=== PATIENT | male | born 1995 | race Asian ===

== ENCOUNTER 2017-05-06 11:02 | Inpatient (IN) | payer BC ==
[~2017-05-06] VITALS: Ht 177.8 cm; Wt 72.6 kg
--- NOTE | 2017-05-06 11:44 | NUR ---
PATIENT TO TO DT ABDOMINAL CRAMPS AND NAUSEA THIS MORNING. PER PATIENT HE ALSO HAD TWO SYNCOPAL EPISODE. PT DENIES VOMITTING. PT IS AFEBRILE AT THIS TIME,. DENIES DIRRHEA, NO DYSURIA NOR HEMATURIA NOTED. PT IN NO APPARENT DISTRESS. GOWNED PT AND PLACED ON TELE MONITOR. PENDING MD PENA/.
--- NOTE | 2017-05-06 11:45 | NUR ---
PATIENT TO ED C/O 2 EPISODES OF SYNCOPE TODAY, ABD CRAMPING, NAUSEA. AFEBRILE/
[2017-05-06] MEDS ORDERED: ONDANSETRON HCL/PF 4 MG/2 ML VIAL IVP ONE (12:00)
[2017-05-06] MEDS ORDERED: IV NS 0.9% 1,000 ML BAG IV ONE (12:00)
[2017-05-06] MEDS ORDERED: ONDANSETRON HCL/PF 4 MG/2 ML VIAL ONE ×2 (12:01→17:37)
[2017-05-06 12:12] LABS: BASOPHILS # (AUTO) 0.3 /CMM (0.0-0.2); BASOPHILS % (AUTO) 2.4 % (0.0-2.0); EOSINOPHILS % (AUTO) 0.1 % (0.0-6.0); HEMATOCRIT 39 % (39-51); HEMOGLOBIN 13.7 g/dL (13.5-17.5); LYMPHOCYTES # (AUTO) 1.2 /CMM (0.8-4.8); LYMPHOCYTES % (AUTO) 8.5 % (20.0-44.0); MEAN CORPUSCULAR HEMOGLOBIN 28 PG (26.0-33.0); MEAN CORPUSCULAR HGB CONC 35 g/dl (31.0-36.0); MEAN CORPUSCULAR VOLUME 82 fL (80-96); MONOCYTES # (AUTO) 0.9 /CMM (0.1-1.30); MONOCYTES % (AUTO) 6.2 % (2.0-12.0); NEUTROPHILS # (AUTO) 11.3 /CMM (1.8-8.9); NEUTROPHILS % (AUTO) 82.8 % (43.0-81.0); PLATELET COUNT (AUTO) 242 /CMM (150-450); RDW COEFFICIENT OF VARIATION 12.4 (11.5-15.0); RED BLOOD CELL COUNT(AUTO) 4.81 MIL/uL (4.5-6.0); WHITE BLOOD COUNT (AUTO) 13.7 K/uL (4.3-11.0)
[2017-05-06 12:21] LABS: CREATININE 1.2 mg/dL (0.6-1.3); POTASSIUM 3.9 mmol/L (3.5-5.1)
[2017-05-06 12:27] LABS: ALBUMIN 4.2 g/dL (3.4-5.0); BILIRUBIN,DIRECT 0.2 mg/dL (0.0-0.2); BILIRUBIN,TOTAL 1.9 mg/dL (0.2-1.0); TOTAL PROTEIN, SERUM 7.5 g/dL (6.4-8.2)
[2017-05-06] MEDS ORDERED: IOHEXOL-300 100 ML VIAL IV ONE (13:32)
[2017-05-06] MEDS ORDERED: CT SWABBABLE VALVE TRANS SET 1 EA INFUS.SET MC ONE (13:32)
[2017-05-06] MEDS ORDERED: IV NS 0.9% 250 ML IV ONE (13:32)
[2017-05-06 14:23] LABS: APPEARANCE,URINE Clear (CLEAR); BILIRUBIN,URINE Negative (NEGATIVE); BLOOD, URINE Negative Ery/uL (NEGATIVE); COLOR,URINE Yellow (YELLOW); KETONES,URINE 40 (NEGATIVE); LEUKOCYTE ESTERASE ,URINE Negative (NEGATIVE); NITRITE, URINE Negative (NEGATIVE); PH,URINE 6.5 (5.0-8.0); PROTEIN,URINE Negative (NEGATIVE); UGLUCOSE Negative (NEGATIVE); UROBILINOGEN,URINE 0.2 EU/dL (0.2)
[2017-05-06 14:32] LABS: BACTERIA,URINE None seen /HPF (None Seen); RBC,URINE NONE SEEN /HPF (0-2); SQUAMOUS EPITHELIAL CELL,UR Few /HPF (None Seen); WBC,URINE 0-2 /HPF (0-3)
--- NOTE | 2017-05-06 15:03 | NUR ---
[facility] VARMA ON THE PHONE WITH CHIROPRACTOR ASSISTANT GENERAL SURGEON DR LUCAS
[2017-05-06] MEDS ORDERED: IV NS 0.9% 1,000 ML IV PRN (15:41)
[2017-05-06] MEDS ORDERED: HYDROCODONE/APAP 5/325MG 1 EACH TABLET PO PRN ×2 (16:00→17:45)
[2017-05-06] MEDS ORDERED: ONDANSETRON HCL/PF 4 MG/2 ML VIAL IVP PRN ×2 (16:00→17:45)
[2017-05-06] MEDS ORDERED: MAG HYDROX/AL HYDROX/SIMETH 30 ML UDC PO PRN ×2 (16:00→17:45)
[2017-05-06] MEDS ORDERED: MAGNESIUM HYDROXIDE 30 ML UDC PO PRN ×2 (16:00→17:45)
[2017-05-06] MEDS ORDERED: Z GUARD REMEDY 2 OZ OINT TP PRN ×2 (16:00→17:45)
[2017-05-06] MEDS ORDERED: ZOLPIDEM TARTRATE 5 MG TABLET PO PRN ×2 (16:00→17:45)
[2017-05-06] MEDS ORDERED: ACETAMINOPHEN 325 MG TABLET PO PRN ×2 (16:00→17:45)
--- NOTE | 2017-05-06 16:16 | NUR ---
BED 314.1
[2017-05-06] MEDS ORDERED: ONDANSETRON HCL/PF 4 MG/2 ML VIAL IV ONE (17:30)
[2017-05-06] MEDS ORDERED: MORPHINE SULFATE INJ 10 MG/ML DISP.SYRIN IV ONE (17:30)
[2017-05-06] MEDS ORDERED: MORPHINE SULFATE INJ 4 MG/ML DISP.SYRIN ONE (17:35)
--- NOTE | 2017-05-06 17:39 | NUR ---
PT TRANSPORTED TO CT,. VSS
[2017-05-06 19:00] VITALS: BP 119/74
--- NOTE | 2017-05-06 19:10 | NUR ---
MS RN NOTES: DR. JASMIN Banegas AT BEDSIDE.
--- NOTE | 2017-05-06 19:10 | NUR ---
MS RN OPENING NOTES: RECEIVED PT AND IS AWAKE AND A/OX4. PT NOT COMPLAINING OF ANY PAIN AT THIS TIME. PT HAS IV ON L AC #20G AND IS TO START ON IV FLUIDS SOON. PT A/OX4. PT SPEAKING WITH DR. CASTELLANOS AT THIS TIME. CALL LIGHT WITHIN PT'S REACH. PT INFORMED THAT POST MIDNIGHT, NOT TO HAVE ANYTHING TO EAT OR DRINK. CALL LIGHT WITHIN PT'S REACH. BED KEPT IN LOW, LOCKED POSITION, AND SIDE RAILS X 2UP. WILL CONTINUE TO MONITOR PT.
--- NOTE | 2017-05-06 19:10 | NUR ---
MS RN NOTES: PER DR. CASTELLANOS, ORDER CBC AND BMP IN THE MORNING. ALSO, PT TO BE NPO POST MIDNIGHT. CALL DR. CASTELLANOS AT 0830 IN THE MORNING TO LET HIM KNOW HOW THE PATIENT IS LOOKING AND DOING.
[2017-05-06] MEDS: IV NS 0.9% 1,000 ML IV PRN (19:54)
[2017-05-06 20:00] VITALS: BP 114/67
[2017-05-06 21:05] VITALS: BP 114/67
--- NOTE | 2017-05-06 22:04 | NUR ---
MS RN NOTES: PER DR. JASMIN Banegas GET CONSENT FOR HIV IF PATIENT CONSENTS. CONSENT OBTAINED AND PLACED IN CHART.
--- NOTE | 2017-05-06 22:18 | NUR ---
MS RN NOTES: SPOKE WITH DR. LEON AND GOT ORDER FOR MORPHINE 2MG IV Q3HR PRN SINCE PT WILL BE NPO POST MIDNIGHT IN CASE PATIENT ASKS FOR PAIN MEDICATION.
[2017-05-06] MEDS ORDERED: MORPHINE SULFATE INJ 4 MG/ML DISP.SYRIN IV PRN (22:30)
--- NOTE | 2017-05-07 07:15 | NUR ---
MS RN CLOSING NOTES: ALL NEEDS WERE ATTENDED AND ANTICIPATED FOR. PT ASLEEP AT THIS TIME. PT HAS IV ON L AC #20G AND IS BEING INFUSED WITH NS AT 75ML/HR. PT KEPT NPO POST MIDNIGHT. CALL LIGHT WITHIN PT'S REACH. CALL LIGHT WITHIN PT'S REACH. BED KEPT IN LOW, LOCKED POSITION, AND SIDE RAILS X 2UP. ENDORSED TO AM NURSE FOR SACHIN.
[2017-05-07 07:18] LABS: BASOPHILS % (AUTO) 0.4 % (0.0-2.0); EOSINOPHILS # (AUTO) 0.1 /CMM (0.0-0.7); EOSINOPHILS % (AUTO) 0.6 % (0.0-6.0); HEMATOCRIT 33 % (39-51); HEMOGLOBIN 11.3 g/dL (13.5-17.5); LYMPHOCYTES % (AUTO) 24.3 % (20.0-44.0); MEAN CORPUSCULAR HEMOGLOBIN 29 PG (26.0-33.0); MEAN CORPUSCULAR HGB CONC 35 g/dl (31.0-36.0); MEAN CORPUSCULAR VOLUME 83 fL (80-96); MONOCYTES # (AUTO) 0.6 /CMM (0.1-1.30); MONOCYTES % (AUTO) 7.7 % (2.0-12.0); NEUTROPHILS # (AUTO) 5.5 /CMM (1.8-8.9); PLATELET COUNT (AUTO) 194 /CMM (150-450); RDW COEFFICIENT OF VARIATION 13.3 (11.5-15.0); RED BLOOD CELL COUNT(AUTO) 3.92 MIL/uL (4.5-6.0); WHITE BLOOD COUNT (AUTO) 8.3 K/uL (4.3-11.0)
--- NOTE | 2017-05-07 07:28 | NUR ---
MS/RN OPENING NOTE RECEIVED PATIENT IN BED AWAKE. THE PATIENT ALERT AND ORIENTED X4. RESPIRATION REGULAR AND UNLABORED. DENIES SOB, DENIES PAIN AT THIS TIME. IN NO APPARENT DISTRESS. LAC G 20 PATENT, NO S/S INFILTRATION NOTED. ON NPO SINCE MIDNIGHT. BED LOW AND LOCKED. SIDE RAIL UP X2. CALL LIGHT WITHIN REACH. WILL CONTINUE TO MONITOR.
[2017-05-07 08:00] VITALS: BP 89/45
[2017-05-07 08:08] LABS: ALBUMIN 3.2 g/dL (3.4-5.0); BILIRUBIN,TOTAL 1.7 mg/dL (0.2-1.0); CALCIUM, SERUM 8.4 mg/dL (8.5-10.1); CREATININE 1.1 mg/dL (0.6-1.3); POTASSIUM 4.2 mmol/L (3.5-5.1); TOTAL PROTEIN, SERUM 6.2 g/dL (6.4-8.2)
--- NOTE | 2017-05-07 08:18 | NUR ---
TEXTED FOR MRI APPROVAL.
[2017-05-07] MEDS: IV NS 0.9% 1,000 ML IV PRN ×2 (10:02→23:31)
[2017-05-07] MEDS ORDERED: IV NS 0.9% 0 ML IV ONE (10:05)
[2017-05-07] MEDS ORDERED: CT SWABBABLE VALVE TRANS SET 1 EA INFUS.SET MC ONE (10:05)
[2017-05-07] MEDS ORDERED: IOHEXOL-300 100 ML VIAL IV ONE (10:05)
--- NOTE | 2017-05-07 10:30 | NUR ---
MS/RN S/B Dr Leija Seen by Dr Leija - possible colonoscopy depending on findings of MRI.
--- NOTE | 2017-05-07 11:30 | NUR ---
MS/RN MRI abdomen and pelvis MRI abdomen and pelvis resulted as showing soft tissue mass within the pelvis, measuring 8.0X7.8X5.0cm. AIRFREIGHT OPERATIONS AGENT and Dr Merchant made aware.
[2017-05-07] MEDS ORDERED: GADOVERSETAMIDE 2.5 MMOL/5 ML VIAL IJ ONE (12:25)
[2017-05-07] MEDS ORDERED: GADOVERSETAMIDE 5 MMOL/10 ML VIAL IJ ONE (12:25)
--- NOTE | 2017-05-07 12:30 | NUR ---
MS/RN CT chest CT chest resulted as showing solitary pulmonary nodule in the right lower lung which may represent small pulmonary metastasis.
--- NOTE | 2017-05-07 12:47 | NUR ---
CT GUIDED NEEDLE BIOPSY OF PELVIC MASS TO BE DONE 05/08/17 AT 1000. RN, NURSING LEAD INVESTIGATOR, PATHOLOGY AWARE. COAGS TO BE DRAWN. CONSENTS FOR PROCEDURE AND MODERATE SEDATION TO BE OBTAINED. PATIENT TO BE NPO AFTER MIDNIGHT.
--- NOTE | 2017-05-07 14:00 | NUR ---
MS/RN S/B Loree Bhandari REGISTERED TRAVEL NURSE Seen by REGISTERED TRAVEL NURSE - aware of all results. Patient and family spoken to at length about possibility of malignancy. CT needle biopsy of pelvic mass ordered for tomorrow. Patient to be NPO from midnight, consent forms signed.
[2017-05-07 15:14] LABS: INR 0.97 (0.87-1.13)
[2017-05-07 16:00] VITALS: BP 106/46
--- NOTE | 2017-05-07 19:04 | NUR ---
MS/RN CLOSING NOTE PATIENT IN BED AWAKE. A/O X4. DENIES SOB, PAIN. IN NO APPARENT DISTRESS. RESPIRATION REGULAR AND UNLABORED. BED LOW AND LOCKED. SIDE RAIL UP X2. CALL LIGHT WITHIN REACH. WILL CONTINUE TO MONITOR.
[2017-05-07 20:00] VITALS: BP 109/62
--- NOTE | 2017-05-07 20:30 | NUR ---
MS RN NOTE: RECEIVED PATIENT FROM 3RD FLOOR, NO ACUTE DISTRESS NOTED, FAMILY AT BEDSIDE. BREATHING EVEN AND UNLABORED, NO SOB NOTED. IV TO LEFT HAND IN PLACE. BED LOCKED AND IN LOWEST POSITION, CALL LIGHT IN REACH, WILL CONTINUE TO MONITOR.
--- NOTE | 2017-05-07 21:30 | NUR ---
MS RN NOTE: PATIENT SEEN BY DR. CASTELLANOS, NO NEW ORDERS AT THIS TIME. PLAN IS FOR PATIENT TO HAVE CT GUIDED BIOPSY OF ABDOMEN, CONSENTS SIGNED AND FILLED IN CHART. WILL CONTINUE TO MONITOR.
--- NOTE | 2017-05-08 06:30 | NUR ---
MS RN NOTE: PATIENT RESTING IN BED, NO ACUTE DISTRESS NOTED. BREATHING EVEN AND UNLABORED, NO SOB NOTED. IV TO LEFT HAND IN PLACE, INFUSING NS AT 75 ML/HR. BED LOCKED AND IN LOWEST POSITION, CALL LIGHT IN REACH, WILL ENDORSE TO DAY NURSE TO CONTINUE WITH PLAN OF CARE.
--- NOTE | 2017-05-08 07:15 | NUR ---
MS RN OPENING NOTES RECEIVED PT FROM NIGHTSHIFT NURSE IN STABLE CONDITION. PT IS A/O X4. NO SOB OR SIGNS OF DISTRESS NOTED. BREATHING IS EVEN AND UNLABORED. PT COMPLAINS OF CONSTIPATION. MD AWARE. NPO STATUS MAINTAINED FOR CT GUIDED BIOPSY. IV NOTED OT LEFT HAND 22G INFUSING NS @ 75ML/HR. IV IS PATENT AND INTACT. NO REDNESS OR SIGNS OF INFILTRATION NOTED. BED IN LOW LOCKED POSITION, SIDE RAILS UP X2, CALL LIGHT WITHIN REACH. WILL CONTINUE TO MONITOR
[2017-05-08] MEDS ORDERED: FENTANYL PF 250MCG/5ML AMPUL IV ONE (09:30)
[2017-05-08] MEDS ORDERED: NALOXONE PREFILLED SYRINGE 2 MG/2 ML SYRINGE IV ONE (09:30)
[2017-05-08] MEDS ORDERED: MIDAZOLAM HCL 5MG/ML VIAL 25 MG/5 ML VIAL IV ONE (09:30)
[2017-05-08 09:51] VITALS: BP 105/64
--- NOTE | 2017-05-08 10:19 | NUR ---
MS RN NOTES PT TAKEN DOWN FOR CT BIOPSY IN STABLE CONDITION.
--- NOTE | 2017-05-08 12:01 | NUR ---
MS RN NOTES PT BACK FROM RADIOLOGY IN STABLE CONDITION. PER OR NURSE, CT WAS NOT DONE PER MD'S RECOMMENDATION. RATHER, A PELVIC CT AND ABSCESS DRAINAGE US WERE ORDERED A HEMATOMA IS SUSPECTED. PER OR NURSE MD WILL FOLLOW UP WITH PT'S PRIMARY
[2017-05-08 12:24] LABS: BASOPHILS % (AUTO) 0.6 % (0.0-2.0); EOSINOPHILS % (AUTO) 0.8 % (0.0-6.0); HEMATOCRIT 34 % (39-51); HEMOGLOBIN 11.8 g/dL (13.5-17.5); LYMPHOCYTES % (AUTO) 33.3 % (20.0-44.0); MEAN CORPUSCULAR HEMOGLOBIN 29 PG (26.0-33.0); MEAN CORPUSCULAR HGB CONC 35 g/dl (31.0-36.0); MEAN CORPUSCULAR VOLUME 84 fL (80-96); MONOCYTES # (AUTO) 0.4 /CMM (0.1-1.30); MONOCYTES % (AUTO) 5.9 % (2.0-12.0); NEUTROPHILS # (AUTO) 3.6 /CMM (1.8-8.9); NEUTROPHILS % (AUTO) 59.4 % (43.0-81.0); PLATELET COUNT (AUTO) 182 /CMM (150-450); RDW COEFFICIENT OF VARIATION 13.3 (11.5-15.0); RED BLOOD CELL COUNT(AUTO) 4.06 MIL/uL (4.5-6.0)
[2017-05-08 13:11] LABS: CALCIUM, SERUM 8.7 mg/dL (8.5-10.1); POTASSIUM 4.1 mmol/L (3.5-5.1)
--- NOTE | 2017-05-08 15:23 | NUR ---
MS RN NOTES DR. ROBYN REYES'S ENDOSCOPY NURSE GAVE A TELEPHONE ORDER FOR : CONSENT FOR COLONOSCOPY, CLEAR LIQUID DIET THEN NPO POST MIDNIGHT, BEGIN GOLYTELY NOW AND A ONE TIME DOSE OF MAGNESIUM CITRATE, FLEET ENEMA PRN X2 IF PT IS NOT CLEARED BY AM. WILL INPUT AND CARRY OUT ORDERS
[2017-05-08] MEDS ORDERED: MAGNESIUM CITRATE 296 ML BOTTLE PO ONE (15:30)
[2017-05-08] MEDS ORDERED: NA PHOS,M-B/NA PHOS,DI-BA 1 EA ENEMA RC PRN (15:30)
[2017-05-08] MEDS ORDERED: PEG 3350/NA SULF,BICARB,CL/KCL 4,000 ML BOTTLE PO ONE (15:30)
[2017-05-08 16:00] VITALS: BP 109/50
--- NOTE | 2017-05-08 18:54 | NUR ---
MS RN CLOSING NOTES PT REMAINS STABLE. NO ACUTE CHANGES IN CONDITION DURING SHIFT. NEEDS ANTICIPATED FOR AND ATTENDED TO. ALL DUE MEDS GIVEN. PT CONTINUES TO DRINK GOLYTELY SOLUTION ORDERED. CONSENTS COMPLETED FRO COLONOSCOPY IN AM. FAMILY AT BEDSIDE. WILL ENDORSE TO NIGHTSHIFT NURSE FOR SACHIN AND COMPLETION OF SURGICAL CHECKLIST
--- NOTE | 2017-05-08 19:50 | NUR ---
MS RN NOTES RECEIVED ON BED A/O X4,BREATHING REGULAR, NOT IN ANY FORM OF DISTRESS.PRESENT IVF INFUSING WELL ON LEFT HAND VIA IV PUMP,SITE PATENT.INSTRUCTED NPO POST MIDNIGHT FOR COLONOSCOPY IN THE MORNING WITH DR BALDERAS.HE'S BEED DRINKING GOLYTELY,USP AT THIS TIME,TOLERATED WELL.CALL LIGHT IN REACH,NEEDS ANTICIPATED.
[2017-05-08 20:00] VITALS: BP 124/70
[2017-05-08 22:09] VITALS: BP 124/70
--- NOTE | 2017-05-08 23:00 | NUR ---
MS RN NOTES SLEEPING,KEPT WARM AND COMFORTABLE.
[2017-05-09] MEDS: IV NS 0.9% 1,000 ML IV PRN (01:09)
[2017-05-09 04:08] LABS: BETA-2 MICROGLOBULIN, SERUM 1.2 mg/L (0.6-2.4)
[2017-05-09 06:02] VITALS: BP 99/52
[2017-05-09 06:13] LABS: HAPTOGLOBIN 47 mg/dL (34-200)
[2017-05-09 06:32] LABS: BASOPHILS % (AUTO) 0.3 % (0.0-2.0); EOSINOPHILS # (AUTO) 0.2 /CMM (0.0-0.7); EOSINOPHILS % (AUTO) 2.2 % (0.0-6.0); HEMATOCRIT 33 % (39-51); HEMOGLOBIN 11.6 g/dL (13.5-17.5); LYMPHOCYTES # (AUTO) 1.4 /CMM (0.8-4.8); LYMPHOCYTES % (AUTO) 19.8 % (20.0-44.0); MEAN CORPUSCULAR HEMOGLOBIN 29 PG (26.0-33.0); MEAN CORPUSCULAR HGB CONC 35 g/dl (31.0-36.0); MEAN CORPUSCULAR VOLUME 84 fL (80-96); MONOCYTES # (AUTO) 0.6 /CMM (0.1-1.30); MONOCYTES % (AUTO) 8.3 % (2.0-12.0); NEUTROPHILS # (AUTO) 4.9 /CMM (1.8-8.9); NEUTROPHILS % (AUTO) 69.4 % (43.0-81.0); PLATELET COUNT (AUTO) 173 /CMM (150-450); RDW COEFFICIENT OF VARIATION 13.5 (11.5-15.0); RED BLOOD CELL COUNT(AUTO) 3.95 MIL/uL (4.5-6.0); WHITE BLOOD COUNT (AUTO) 7.1 K/uL (4.3-11.0)
--- NOTE | 2017-05-09 06:39 | NUR ---
MS RN NOTES SPOKE TO SAW.MADE AWARE OF LOW HEART RATE.PATIENT FINISHED 4L OF GOLYTELY.BOWEL MOVEMENT CLEAR YELLOW AT 0615.IVF INFUSING.CALL LIGHT IN REACH,NEEDS ATTENDED.WILL ENDORSE TO LINDA BOYD FOR SACHIN
[2017-05-09] MEDS ORDERED: ANESTHESIA TRAY IN PYXIS 1 EA TRAY MC ONE (06:46)
[2017-05-09 07:08] LABS: ALBUMIN 3.5 g/dL (3.4-5.0); BILIRUBIN,TOTAL 1.7 mg/dL (0.2-1.0); CALCIUM, SERUM 8.3 mg/dL (8.5-10.1); CREATININE 1.1 mg/dL (0.6-1.3); POTASSIUM 4.1 mmol/L (3.5-5.1); TOTAL PROTEIN, SERUM 6.8 g/dL (6.4-8.2)
[2017-05-09 08:00] VITALS: BP 121/61
--- NOTE | 2017-05-09 08:00 | NUR ---
M/S RN - AM Notes Received from GI lab s/p colonoscopy, awake, A/O x 4, denies abdominal pain, started on clear liquid diet. IVF NS at 75 ml/hr infusing well on the left hand with no complications. All needs attended and met. Will continue with current medical management.
--- NOTE | 2017-05-09 15:30 | NUR ---
M/S RN - Discharge Patient feeling better, denies abdominal pain, tolerated general diet well, no c/o n/v, discharged to home in stable condition. Reviewed discharge instructions with pt and he verbalized full understanding of all teachings including avoiding blood thinners, f/u appt with Dr. Freire for colon biopsy result, f/u with Loree Bhandari NP and return to the nearest ED for worsening symptoms. All belongings with the pt and he denies any missing items. Heplock removed on the left hand with catheter tip intact, no redness and no swelling noted at the site. Skin is intact, refused picture to be taken. Discharge papers signed and copy was given per protocol. Accompanied to the lobby and transported by private car.
== END 2017-05-09 15:30 | disposition home or self-care (01) | DRG 395 ==
LOC: ER 11:12 → MED 18:03 → MEDSG2 05-07 20:40
PROC: 0DDP8ZX Extraction of Rectum, Via Natural or Artificial Opening Endoscopic, Diagnostic (ICD-10-PCS; principal; 2017-05-09 07:26)
DX: K66.1 Hemoperitoneum (principal); E83.51 Hypocalcemia; W18.12XA Fall from or off toilet with subsequent striking against object, initial encounter; D64.9 Anemia, unspecified; D72.829 Elevated white blood cell count, unspecified; R74.0 Nonspecific elevation of levels of transaminase and lactic acid dehydrogenase [LDH]; R91.1 Solitary pulmonary nodule; Y92.009 Unspecified place in unspecified non-institutional (private) residence as the place of occurrence of the external cause
CPT/HCPCS: 36415; 71045-TC; 71250-TC; 72192-TC; 74183-TC; 76882; 80048-TC; 80053-TC; 80076-TC; 81000-TC; 82232; 82306; 82728-TC; 82746; 82962-TC; 83010; 83540-TC; 83615-TC; 83690-TC; 84550-TC; 85025-TC; 85610-TC; 85652-TC; 85730-TC; 86704; 86706; 86709-TC; 86803; 87081-TC; 87340; 88305-TC; A4606; A9579; J2250; J2270; J2310; J2405; J2704; J3010; J3490; J7030; J7050; J7060; Q9967; Z7610